=== PATIENT | female | born 1945 | race Caucasian/White ===

== ENCOUNTER 2022-09-18 08:45 | Inpatient (IN) | payer OTHER ==
[~2022-09-18] VITALS: Ht 152.4 cm; Wt 72.6 kg
[2022-09-18 11:11] LABS: BASOPHILS ABSOLUTE AUTO 0.02 K/mm3 (0.00-0.23); BASOPHILS PERCENT AUTO 0 % (0-2); EOSINOPHILS ABSOLUTE AUTO 0.02 K/mm3 (0.00-0.68); EOSINOPHILS PERCENT AUTO 0 % (0-6); Hematocrit 39.5 % (33.0-51.0); Hemoglobin 12.9 g/dL (11.5-16.0); IMMATURE GRAN ABSOLUTE AUTO 0.05 K/mm3 (0.00-0.10); IMMATURE GRAN PERCENT AUTO 0 % (0-1); LYMPHOCYTES ABSOLUTE AUTO 1.18 K/mm3 (0.84-5.20); LYMPHOCYTES PERCENT AUTO 10 % (21-46); MONOCYTES ABSOLUTE AUTO 0.48 K/mm3 (0.16-1.47); MONOCYTES PERCENT AUTO 4 % (4-13); Mean Corpuscular HGB 27.9 pg (26.0-34.0); Mean Corpuscular HGB Conc 32.7 g/dL (31.5-36.5); Mean Corpuscular Volume 85 fL (80-100); Mean Platelet Volume 11.2 fL (9.1-12.4); NEUTROPHILS ABSOLUTE AUTO 9.93 K/mm3 (1.96-9.15); NEUTROPHILS PERCENT AUTO 85 % (41-73); Platelet Count 285 K/mm3 (150-400); RDW Coefficient Variation 12.5 % (11.7-14.2); RDW Standard Deviation 38.5 fL (35.1-46.3); Red Blood Cell Count 4.63 M/mm3 (3.80-5.20); White Blood Cell Count 11.68 K/mm3 (4.00-11.30)
[2022-09-18 12:13] LABS: Albumin, Blood 3.8 g/dL (3.4-5.0); Albumin/Globulin Ratio 1.3 (0.8-1.8); Bilirubin, Total 0.4 mg/dL (0.1-1.0); Bun/Creatinine Ratio 18.1 (12.0-20.0); Calcium, Blood 9.1 mg/dL (8.5-10.1); Creatinine, Blood 0.77 mg/dL (0.40-1.00); Potassium, Blood 4.1 mmol/L (3.5-5.5); Total Protein, Blood 6.8 g/dL (6.4-8.2)
[2022-09-18 12:31] VITALS: BP 161/67
--- NOTE | 2022-09-18 13:13 | NUR ---
ARRIVED FROM THE ED VIA RAMIREZ, AWAKE, A&OX4, DENIES ANY PAIN OR NUMBNESS OR TINGLING, RLE W/ SPLINT AND DANIEL WRAP, ELEVATED ON PILLOWS, ORIENTED TO ROOM AND CALL LIGHT SYSTEM, PLAN FOR OR TOMORROW PER DR. RAMOS.
--- NOTE | 2022-09-18 16:58 | NUR ---
SUMMARY ER ADMIT TODAY FOR R ANKLE FX, RLE IN SPLINT AND DANIEL WRAP, PLAN FOR OR TOMORROW, NPO AFTER MN, PT AWARE OF PLAN, FENTANYL FOR PAIN, CHANGED FROM Q4HRS TO Q2HRS, AND TRAMADOL Q6HRS PO, DENIES ANY NUMBNESS OR TINGLING, RLE ELEVATED ON PILLOWS, NO ACUTE CHANGES THIS SHIFT.
[2022-09-18 20:06] VITALS: BP 178/91
[2022-09-19] VITALS (22 sets, daily range): BP systolic 123–164; BP diastolic 56–99
[2022-09-19 05:34] LABS: BASOPHILS ABSOLUTE AUTO 0.02 K/mm3 (0.00-0.23); BASOPHILS PERCENT AUTO 0 % (0-2); EOSINOPHILS ABSOLUTE AUTO 0.05 K/mm3 (0.00-0.68); EOSINOPHILS PERCENT AUTO 1 % (0-6); Hematocrit 36.9 % (33.0-51.0); IMMATURE GRAN ABSOLUTE AUTO 0.02 K/mm3 (0.00-0.10); IMMATURE GRAN PERCENT AUTO 0 % (0-1); LYMPHOCYTES ABSOLUTE AUTO 1.95 K/mm3 (0.84-5.20); LYMPHOCYTES PERCENT AUTO 23 % (21-46); MONOCYTES ABSOLUTE AUTO 0.76 K/mm3 (0.16-1.47); MONOCYTES PERCENT AUTO 9 % (4-13); Mean Corpuscular HGB 27.8 pg (26.0-34.0); Mean Corpuscular HGB Conc 32.5 g/dL (31.5-36.5); Mean Corpuscular Volume 86 fL (80-100); Mean Platelet Volume 11.2 fL (9.1-12.4); NEUTROPHILS ABSOLUTE AUTO 5.83 K/mm3 (1.96-9.15); NEUTROPHILS PERCENT AUTO 68 % (41-73); Platelet Count 277 K/mm3 (150-400); RDW Coefficient Variation 12.3 % (11.7-14.2); RDW Standard Deviation 38.7 fL (35.1-46.3); Red Blood Cell Count 4.31 M/mm3 (3.80-5.20); White Blood Cell Count 8.63 K/mm3 (4.00-11.30)
[2022-09-19 05:58] LABS: Calcium, Blood 8.4 mg/dL (8.5-10.1); Creatinine, Blood 0.88 mg/dL (0.40-1.00); Potassium, Blood 3.9 mmol/L (3.5-5.5)
--- NOTE | 2022-09-19 06:39 | NUR ---
PT VSS T/O NIGHT. SPLINT INTACT TO RLE, CAP REFILL WNL, PT DENIED CHANGES IN SENSATION. PT STRUGGLED W/PAIN MGMT, MED PER EMAR, REPOSITIONED CA. PT UP TO BSC W/FWW+1 ASSIST, CA WELL, MAINTAINED NWB ON RLE. PT NPO POST MIDNIGHT FOR PLAN FOR SURGERY TODAY. NO IGNITION RISKS IDENTIFIED.
--- NOTE | 2022-09-19 11:51 | NUR ---
PATIENT JUST LEFT FOR THE OR.
--- NOTE | 2022-09-19 16:14 | NUR ---
PATIENT JUST CAME BACK FROM PACU TODAY AT 1600. POD 0 RIGHT ANKLE ORIF PATIENT IS A&OX4. VS ARE WNL AND IS ON 1L NC AT THIS TIME BUT HAS >90% OXYGEN SATS. SHE DENIES PAIN AT THIS TIME WELL BUT IS NAUSEOUS. THIS NURSE JUST GAVE HER IV ZOFRAN AND PATIENT REPORTS "IT SEEMS TO BE HELPING". HER RIGHT ANKLE IS IN A HARD SPLINT WITH DANIEL WRAP THAT IS C/D/I. DENIES NUMBNESS OR TINGLING IN ALL EXTREMITIES. CAN MOVE ALL FINGERS AND TOES. PATIENT IS LAYING IN BED WITH CALL LIGHT IN REACH. IS AT BEDSIDE.
--- NOTE | 2022-09-19 22:33 | NUR ---
PHONE CALL DR. RAMOS CALLED THE DESK AND INFORMED ME, THE PRIMARY NURSE, THAT THIS PATIENTS LEG WAS EXTREMELY SWOLLEN DURING SURGERY AND THAT HER LEG NEEDED TO BE ELEVATED AT ALL TIMES AND ICED. I WENT AND INFORMED THE PATIENT ABOUT THIS AND THEN ELEVATED AND ICED HER LEG. CAP REFILL <3 SECONDS. PT ABLE TO MOVE TOES. REPORTS NO PAIN IN FOOT, ANKLE, OR CALF. SPLINT NOTED TO BE SNUG BUT NOT TIGHT ENOUGH TO IMPEDE CIRCULATION. PLAN TO CALL WITH FURTHER CONCERNS.
[2022-09-20 00:10] VITALS: BP 120/60
[2022-09-20 05:16] VITALS: BP 118/72
--- NOTE | 2022-09-20 05:32 | NUR ---
SHIFT SUMMARY & FIRE SAFETY POD1 RIGHT ANKLE ORIF. CAP REFILL REMAINS <3 SECONDS. RLE HAS REMAINED ELEVATED AND ICED T/O THE NIGHT TO CONTROL SWELLING, PER . PT REPORTS NO PAIN, DULLED SENSATION IN RLE BUT CAN MOVE TOES ON COMMAND. PT ABLE TO MOVE ENTIRE EXTREMITY W/O DIFFICULTY. SPLINT REMAINS C/D/I. VSS. PT SLEPT WELL T/O THE NIGHT. REQUIRED NO PAIN MEDICATION. TOLLERATING PO INTAKE W/O N/V. UP TO BSC MULTIPLE TIMES TO VOID, NO COMPLICATIONS NOTED. NO ACUTE EVENTS T/O THE NIGHT. PLAN FOR PT TO D/C HOME TODAY, POSSIBLY WITH HOME HEALTH. THE PATIENT IS CURRENTLY RESTING, IN NO DISTRESS, CALL LIGHT IN REACH NO IGNITION SOURCE NOTED
[2022-09-20 07:04] LABS: BASOPHILS ABSOLUTE AUTO 0.01 K/mm3 (0.00-0.23); BASOPHILS PERCENT AUTO 0 % (0-2); EOSINOPHILS PERCENT AUTO 0 % (0-6); IMMATURE GRAN ABSOLUTE AUTO 0.05 K/mm3 (0.00-0.10); IMMATURE GRAN PERCENT AUTO 0 % (0-1); LYMPHOCYTES PERCENT AUTO 10 % (21-46); MONOCYTES ABSOLUTE AUTO 0.98 K/mm3 (0.16-1.47); MONOCYTES PERCENT AUTO 7 % (4-13); Mean Corpuscular HGB Conc 32.4 g/dL (31.5-36.5); Mean Corpuscular Volume 87 fL (80-100); Mean Platelet Volume 11.7 fL (9.1-12.4); NEUTROPHILS ABSOLUTE AUTO 11.29 K/mm3 (1.96-9.15); NEUTROPHILS PERCENT AUTO 83 % (41-73); Platelet Count 260 K/mm3 (150-400); RDW Coefficient Variation 12.3 % (11.7-14.2); RDW Standard Deviation 39.4 fL (35.1-46.3); Red Blood Cell Count 3.93 M/mm3 (3.80-5.20); White Blood Cell Count 13.63 K/mm3 (4.00-11.30)
[2022-09-20 07:07] LABS: Albumin, Blood 3.2 g/dL (3.4-5.0); Anion Gap 8 mmol/L (6-16); Blood Urea Nitrogen 16 mg/dL (8-24); Bun/Creatinine Ratio 20.8 (12.0-20.0); CO2, Blood 26 mmol/L (21-32); Calcium, Blood 8.4 mg/dL (8.5-10.1); Chloride, Blood 109 mmol/L (98-108); Creatinine, Blood 0.77 mg/dL (0.40-1.00); Glomerular Filtration Rate 80 (60-); Glucose, Blood 116 mg/dL (70-99); Phosphorus, Blood 2.5 mg/dL (2.5-4.9); Potassium, Blood 4.2 mmol/L (3.5-5.5); Sodium, Blood 143 mmol/L (136-145)
[2022-09-20 07:34] VITALS: BP 128/52
[2022-09-20] MEDS ORDERED: Percocet 5-3251 EACH PO (11:02)
--- NOTE | 2022-09-20 13:44 | NUR ---
DISCHARGE SUMMARY ALERT, ORIENTED, COOPERATIVE. TOLERATING REGULAR DIET AND LIQUIDS. AMBULATING IN ROOM WITH PHYSICAL THERAPY AND FWW. MAINTAINTS NWB TO RIGHT LE. RIGHT ANKLE IN SPLINT WITH DANIEL WRAP. C/D/I. REPORTS GOOD SENSATION TO TOES, WARM, AND PINK. BRISK CAP REFILL. WIGGLES TOES. REPORTS MILD PAIN 03/13. INCISIONS NOT VISUALIZED. VSS. FWW DELIVERED TO ROOM. DISCHARGE ORDERS GIVEN. IV DC'D WNL. DISCHARGE EDUCATION GIVEN ON PAIN MED, CAST AND INCISION CARE, SIGNS/SYMPTOMS TO CALL OR RETURN, FOLLOW UP WITH KNEE SCOOTER, HH PT, AND PODIATRY. PATIENT LEFT UNIT AT 1200 VIA WHEELCHAIR WITH SPOUSE FOR HOME.
== END 2022-09-20 12:11 | disposition home health service (06) | DRG 494 ==
LOC: ER 08:45 → SURS 08:46
PROVIDERS: Podiatrist Foot & Ankle Surgery; Student in an Organized Health Care Education/Training Program; ADMIT Family Medicine
PROC: 2W3QX1Z Immobilization of Right Lower Leg using Splint (ICD-10-PCS; 2022-09-18)
PROC: 0QSG04Z Reposition Right Tibia with Internal Fixation Device, Open Approach (ICD-10-PCS; 2022-09-19)
PROC: 0SSF04Z Reposition Right Ankle Joint with Internal Fixation Device, Open Approach (ICD-10-PCS; 2022-09-19)
PROC: 0QSJ04Z Reposition Right Fibula with Internal Fixation Device, Open Approach (ICD-10-PCS; principal; 2022-09-19 12:00)
DX: S82.851A Displaced trimalleolar fracture of right lower leg, initial encounter for closed fracture (principal); D72.829 Elevated white blood cell count, unspecified; D64.9 Anemia, unspecified; I10 Essential (primary) hypertension; E88.09 Other disorders of plasma-protein metabolism, not elsewhere classified; M19.90 Unspecified osteoarthritis, unspecified site; W01.0XXA Fall on same level from slipping, tripping and stumbling without subsequent striking against object, initial encounter; S93.431A Sprain of tibiofibular ligament of right ankle, initial encounter; Z90.49 Acquired absence of other specified parts of digestive tract; Z90.710 Acquired absence of both cervix and uterus
CPT/HCPCS: 29505; 36415; 73610; 73700; 76377; 80048; 80053; 80069; 85025; 94760; 96374-59; 96375-59; 97110; 97161; 97530; 99285-25; A9270; C1713; C1776; J0690; J1100; J1885; J2250; J2405; J2704; J3010; J7120

== ENCOUNTER → 2025-02-03 | Outpatient (CLI) | payer OTHER ==
[~2025-02-03] MED LIST: Percocet 5-3251 EACH PO
[2025-02-03 17:44] LABS: BASOPHILS ABSOLUTE AUTO 0.02 K/mm3 (0.00-0.23); BASOPHILS PERCENT AUTO 0 % (0-2); EOSINOPHILS ABSOLUTE AUTO 0.05 K/mm3 (0.00-0.68); EOSINOPHILS PERCENT AUTO 1 % (0-6); Hematocrit 42.1 % (33.0-51.0); Hemoglobin 14.1 g/dL (11.5-16.0); IMMATURE GRAN ABSOLUTE AUTO 0.02 K/mm3 (0.00-0.10); IMMATURE GRAN PERCENT AUTO 0 % (0-1); LYMPHOCYTES ABSOLUTE AUTO 1.74 K/mm3 (0.84-5.20); LYMPHOCYTES PERCENT AUTO 25 % (21-46); MONOCYTES ABSOLUTE AUTO 0.50 K/mm3 (0.16-1.47); MONOCYTES PERCENT AUTO 7 % (4-13); Mean Corpuscular HGB Conc 33.5 g/dL (31.5-36.5); Mean Corpuscular Volume 84 fL (80-100); NEUTROPHILS ABSOLUTE AUTO 4.67 K/mm3 (1.96-9.15); NEUTROPHILS PERCENT AUTO 67 % (41-73); NRBC ABSOLUTE 0.00 K/mm3 (0.00-0.02); NRBC Auto 0.0 /100 WBC (0.0-0.2); Platelet Count 326 K/mm3 (150-400); RDW Coefficient Variation 13.0 % (11.7-14.2); RDW Standard Deviation 39.1 fL (35.1-46.3)
[2025-02-03 17:59] LABS: Alanine Aminotransfer (ALT/SGP 24.0 U/L (12-78); Albumin, Blood 3.8 g/dL (3.4-5.0); Albumin/Globulin Ratio 1.0 (0.8-1.8); Anion Gap 14.0 mmol/L (3-11); Aspartate Aminotrans (AST/SGOT 25.0 U/L (12-37); Bilirubin, Total 0.5 mg/dL (0.1-1.0); Blood Urea Nitrogen 14.0 mg/dL (8-24); CO2, Blood 29.0 mmol/L (21-32); Calcium, Blood 10.7 mg/dL (8.5-10.1); Chloride, Blood 106.0 mmol/L (98-108); Creatinine, Blood 1.04 mg/dL (0.40-1.00); Globulin, Blood 3.7 g/dL (2.2-4.0); Glucose, Blood 113.0 mg/dL (70-99); Potassium, Blood 4.0 mmol/L (3.5-5.5); Sodium, Blood 145.0 mmol/L (136-145); Total Protein, Blood 7.5 g/dL (6.4-8.2)
== END | disposition home or self-care (01) ==
LOC: LAB 17:39 → LAB SHORT 17:39
PROVIDERS: Chiropractor
DX: E83.52 Hypercalcemia (principal); R11.2 Nausea with vomiting, unspecified; R19.7 Diarrhea, unspecified
CPT/HCPCS: 80053; 82330; 83690; 85025